=== PATIENT | male | born 1960 | race Caucasian/White ===

== ENCOUNTER 2017-06-30 16:06 | Emergency (ER) | payer SELFPAY ==
[~2017-06-30] VITALS: Wt 75.7 kg
[2017-06-30] MEDS ORDERED: ANAPROX DS550 MG PO (18:23)
[2017-06-30] MEDS ORDERED: ROBAXIN500 M1 PO (18:23)
== END 2017-06-30 18:27 | disposition home or self-care (01) ==
LOC: ED 16:06
DX: M47.892 Other spondylosis, cervical region (principal); F17.200 Nicotine dependence, unspecified, uncomplicated; Z91.040 Latex allergy status

== ENCOUNTER 2019-11-08 20:18 | Observation (INO) | payer SELFPAY ==
[~2019-11-08] VITALS: Ht 172.7 cm; Wt 62.3 kg
[~2019-11-08 20:18] MED LIST: ANAPROX DS550 MG PO; ROBAXIN500 M1 PO
[2019-11-08 20:28] VITALS: BP 114/66
[2019-11-08] MEDS ORDERED: SUBOXONE 8 MG-1 EACH SL (20:29)
[2019-11-08 20:35] LABS: BASO # 0.1 10*3/uL (0.0-0.1); BASO % 0.7 % (0.0-1.0); EOS # 0.1 10*3/uL (0.0-0.4); EOS % 0.6 % (1.0-4.0); HEMATOCRIT 41.3 % (42.0-52.0); LYMPH # 0.9 10*3/uL (1.3-4.4); LYMPH % 9.2 % (27.0-41.0); MEAN CELL VOLUME 90.8 fl (80.0-94.0); MEAN CORPUSCULAR HGB CONC 34.1 g/dl (33.0-37.0); MEAN PLATELET VOLUME 8.2 fl (9.6-12.3); MONO # 0.6 10*3/uL (0.1-1.0); MONO % 6.6 % (3.0-9.0); NEUT # 7.8 10*3/uL (2.3-7.9); NEUT % 82.7 % (47.0-73.0); PLATELET COUNT AUTOMATED 311 10*3/uL (130-400); RED BLOOD COUNT 4.55 10*6/uL (4.50-5.90); RED CELL DISTRI WIDTH 13.3 % (0-14.5); WHITE BLOOD COUNT 9.4 10*3/uL (4.8-10.8)
[2019-11-08 20:47] LABS: ACT PARTIAL THROMBO TIME 26.1 SECONDS (20.0-32.1)
[2019-11-08 20:55] LABS: ALBUMIN 3.7 gm/dl (3.1-4.5); ALKALINE PHOSPHATASE 67 U/L (45-117); BUN 21 mg/dl (7-24); CHLORIDE 108 mmol/L (98-107); CREATININE 1.06 mg/dL (0.70-1.30); POTASSIUM 3.7 mmol/L (3.5-5.1); SGOT/AST 20 IU/L (3-35); SGPT/ALT 23 U/L (12-78); SODIUM 135 mmol/L (136-145); TOTAL PROTEIN 7.1 gm/dL (6.4-8.2)
[2019-11-08 21:00] VITALS: BP 112/79
[2019-11-08 21:03] LABS: TROPONIN I < 0.015 ng/ml (<0.045)
[2019-11-08 22:00] VITALS: BP 114/79
[2019-11-08 23:00] VITALS: BP 104/56
[2019-11-09] VITALS (11 sets, daily range): BP systolic 90–132; BP diastolic 51–84
[2019-11-09 06:10] LABS: BASO # 0.1 10*3/uL (0.0-0.1); EOS # 0.5 10*3/uL (0.0-0.4); EOS % 6.2 % (1.0-4.0); HEMATOCRIT 42.9 % (42.0-52.0); LYMPH # 1.8 10*3/uL (1.3-4.4); LYMPH % 21.2 % (27.0-41.0); MEAN CELL VOLUME 91.9 fl (80.0-94.0); MEAN CORPUSCULAR HGB CONC 32.6 g/dl (33.0-37.0); MEAN PLATELET VOLUME 8.7 fl (9.6-12.3); MONO # 0.9 10*3/uL (0.1-1.0); NEUT % 60.4 % (47.0-73.0); PLATELET COUNT AUTOMATED 307 10*3/uL (130-400); RED BLOOD COUNT 4.67 10*6/uL (4.50-5.90); RED CELL DISTRI WIDTH 13.5 % (0-14.5); WHITE BLOOD COUNT 8.3 10*3/uL (4.8-10.8)
[2019-11-09 06:23] LABS: ALBUMIN 3.4 gm/dl (3.1-4.5); ALKALINE PHOSPHATASE 63 U/L (45-117); BUN 18 mg/dl (7-24); CHLORIDE 109 mmol/L (98-107); CHOLESTEROL 134 mg/dL (<200); CREATININE 0.99 mg/dL (0.70-1.30); FREE T4 1.13 ng/dl (0.76-1.46); HDL CHOLESTEROL 54 mg/dl (40-60); LDL CHOLESTEROL 71 mg/dL (9-159); SGOT/AST 20 IU/L (3-35); SGPT/ALT 23 U/L (12-78); SODIUM 141 mmol/L (136-145); TOTAL PROTEIN 6.7 gm/dL (6.4-8.2); TRIGLYCERIDES 44 mg/dl (<150); VLDL CHOLESTEROL 9 mg/dL (6-40)
[2019-11-09 06:28] LABS: THYROID STIM HORMONE (HS) 0.851 uIU/ml (0.358-4.75)
[2019-11-09] MEDS ORDERED: SUBOXONE 8 MG-1 EACH SL (07:33)
[2019-11-10] VITALS: BP 134/69
[2019-11-10 06:31] LABS: BASO # 0.1 10*3/uL (0.0-0.1); BASO % 1.7 % (0.0-1.0); BUN 18 mg/dl (7-24); CHLORIDE 111 mmol/L (98-107); EOS # 0.7 10*3/uL (0.0-0.4); EOS % 8.8 % (1.0-4.0); HEMATOCRIT 41.6 % (42.0-52.0); LYMPH # 1.9 10*3/uL (1.3-4.4); LYMPH % 24.2 % (27.0-41.0); MEAN CELL VOLUME 92.7 fl (80.0-94.0); MEAN CORPUSCULAR HGB 30.5 pg (27.0-31.0); MEAN CORPUSCULAR HGB CONC 32.9 g/dl (33.0-37.0); MEAN PLATELET VOLUME 8.7 fl (9.6-12.3); MONO # 0.7 10*3/uL (0.1-1.0); MONO % 9.6 % (3.0-9.0); NEUT # 4.3 10*3/uL (2.3-7.9); NEUT % 55.6 % (47.0-73.0); PLATELET COUNT AUTOMATED 290 10*3/uL (130-400); POTASSIUM 4.8 mmol/L (3.5-5.1); RED BLOOD COUNT 4.49 10*6/uL (4.50-5.90); RED CELL DISTRI WIDTH 13.4 % (0-14.5); SODIUM 142 mmol/L (136-145); WHITE BLOOD COUNT 7.7 10*3/uL (4.8-10.8)
[2019-11-10 09:00] VITALS: BP 132/84
[2019-11-10 12:00] VITALS: BP 130/78
== END 2019-11-10 16:35 | disposition home or self-care (01) ==
LOC: ED 20:18 → EDHOLD 22:01 → 5E 11-09 07:22
PROVIDERS: Emergency Medicine; Hospitalist; Internal Medicine; ADMIT Internal Medicine
DX: R07.89 Other chest pain (principal); E87.1 Hypo-osmolality and hyponatremia; E87.8 Other disorders of electrolyte and fluid balance, not elsewhere classified; R73.9 Hyperglycemia, unspecified; F11.11 Opioid abuse, in remission; R00.1 Bradycardia, unspecified; E83.39 Other disorders of phosphorus metabolism

== ENCOUNTER 2021-02-10 18:37 | Emergency (ER) | payer SELFPAY ==
[~2021-02-10] VITALS: Ht 172.7 cm; Wt 63.5 kg
[~2021-02-10 18:37] MED LIST changes: +SUBOXONE 8 MG-1 EACH SL
== END 2021-02-10 21:30 | disposition home or self-care (01) ==
LOC: ED 18:37
DX: S06.0X0A Concussion without loss of consciousness, initial encounter (principal); S01.81XA Laceration without foreign body of other part of head, initial encounter; M25.512 Pain in left shoulder; M79.604 Pain in right leg; V17.4XXA Pedal cycle driver injured in collision with fixed or stationary object in traffic accident, initial encounter; Y93.89 Activity, other specified; Y92.89 Other specified places as the place of occurrence of the external cause; Y99.8 Other external cause status